=== PATIENT | male | born 1945 | race Hispanic/Latino ===

== ENCOUNTER 2017-12-11 15:27 | Emergency (ER) | payer OTHER, MEDICARE ==
--- OUTSIDE RECORDS SUMMARY | 2017-12-11 15:29 | XMS REPORT | Clinical Summary ---
Author Author [facility] Address Unknown Phone Unavailable Care Team Providers Care Lens Coating Technician Name Role Phone Dada Addison MD PCP Allergies Active Allergy Reactions Severity Noted Date Comments No Known Drug Allergies 03/15/2016 Current Medications Prescription Sig. Disp. Refills Start End Date Status Date fluticasone (FLONASE) 50 1 spray into each nostril 03/10/20 Active mcg/actuation nasal spray daily. 16 gabapentin (NEURONTIN) Take 1 capsule by mouth 3 03/11/20 Active 300 MG capsule (three) times a day. 16 finasteride (PROSCAR) 5 Take 1 tablet by mouth 03/10/20 Active mg tablet nightly. 16 atorvastatin (LIPITOR) 20 Take 1 tablet by mouth 03/10/20 Active MG tablet nightly. 16 carvedilol (COREG) 12.5 Take 1 tablet by mouth 2 03/10/20 Active MG tablet (two) times a day. 16 RAPAFLO 8 mg capsule 03/16/20 Active 16 amlodipine-benazepril Take 1 capsule by mouth Active (LOTREL) 10-40 mg per daily. capsule RIVAROXABAN (XARELTO Take 8 mg by mouth daily. Active ORAL) Active Problems Problem Noted Date Arthritis of right knee 04/20/2016 Right knee pain 03/15/2016 Hypertension 03/15/2016 Encounters Date Type Specialty Care Team Description 05/11/2017 Abstract Orthopedic Surgery Irvin Rowe MD after 12/10/2016 Family History Medical History Relation Name Comments Heart disease Other Kidney disease Other Relation Name Status Comments Other Social History Tobacco Use Types Packs/Day Years Used Date Former Smoker Quit: 1965 Alcohol Use Drinks/Week oz/Week Comments No Sex Assigned at Date Recorded Not on file Last Filed Vital Signs Not on file Plan of Treatment Health Maintenance Due Date Last Done Comments COLONOSCOPY 1996 ZOSTER VACCINE 2006 PNEUMOCOCCAL 2011 POLYSACCHARIDE VACCINE AGE 65 AND OVER PNEUMOCOCCAL-13 2011 INFLUENZA VACCINE 03/22/2018 10/30/2009, 09/17/2008 Implants Implanted Type Area Chisel Worker Device Expiration Model / Identifier Date Serial / Lot Advance Evolution Pin Pack 3 Long & IPM Right: [employer] 01/28/2024 [id number] / 2 Collared Sterile - [id number] IMPLANT Knee ORTHOPEDICS / Implanted: Qty: 1 on 04/20/2016 by [employer] [id number] Irvin Rowe MD Evolutionmp Tibial Keeled Nonpor IPM Right: [employer] 01/28/2024 [id number] / Size 5 Standard Right - [id number] IMPLANT Knee ORTHOPEDICS / Implanted: Qty: 1 on 04/20/2016 by [employer] [id number] Irvin Rowe MD Evolutionmp Femoral Cs/Cr Non-Por IPM Right: [employer] 11/20/2023 [id number] / Size 5 Primary Right - [id number] IMPLANT Knee ORTHOPEDICS / Implanted: Qty: 1 on 04/20/2016 by [employer] [id number] Irvin Rowe MD Evolution Mp Cs Insert Size 5 IPM Right: [employer] 07/22/2018 [id number] / Standard 14mm Right - [id number] IMPLANT Knee ORTHOPEDICS / Implanted: Qty: 1 on 04/20/2016 by [employer] [id number] Irvin Rowe MD Cement Bone R+G 1dose Palacos - Knee Joint Right: [employer] 2018 [id number] Implants Knee / Implanted: Qty: 1 on 04/20/2016 by / Irvin Rowe MD [id number] Cement Bone R+G 1dose Palacos - Knee Joint Right: [employer] 2018 [id number] Implants Knee / Implanted: Qty: 1 on 04/20/2016 by / Irvin Rowe MD [id number] Patella Onlay 3peg 29mm Pe Advance Knee Joint Right: [employer] 2023 [id number] [id number] - [id number] Implants Knee / Implanted: Qty: 1 on 04/20/2016 by / Irvin Rowe MD [id number] Results Not on fileafter 12/10/2016 Insurance Payer Benefit Subscriber ID Type Phone Address Plan / Group MEDICARE MEDICARE xxxxxxxxxx Medicare [place] PART A AND B AETNA AETNA xxxxxxxxxx HMO HMO,POS,EP O, [facility]
[2017-12-11] MEDS ORDERED: HYDROCHLOROTHIA25 MG (17:16)
[2017-12-11] MEDS ORDERED: FINASTERIDE5 MG PO (17:16)
[2017-12-11] MEDS ORDERED: GABAPENTIN100 MG (17:16)
[2017-12-11] MEDS ORDERED: ATORVASTATIN CA10 MG PO (17:16)
[2017-12-11] MEDS ORDERED: CARVEDILOL3.125 MG PO (17:16)
[2017-12-11] MEDS ORDERED: XARELTO10 MG (17:16)
[2017-12-11] MEDS ORDERED: LORATADINE10 MG PO (17:16)
[2017-12-11] MEDS ORDERED: OMEPRAZOLE40 MG (17:16)
[2017-12-11] MEDS ORDERED: AMLODIPINE BESYL5 MG PO (17:16)
== END 2017-12-11 17:10 | disposition home or self-care (01) ==
LOC: FSED 15:27
DX: M25.551 Pain in right hip (principal); I10 Essential (primary) hypertension; I48.91 Unspecified atrial fibrillation; E78.5 Hyperlipidemia, unspecified
CPT/HCPCS: 99283

== ENCOUNTER → 2018-04-25 | Outpatient (CLI) | payer OTHER ==
[~2018-04-25] MED LIST: AMLODIPINE BESYL5 MG PO; ATORVASTATIN CA10 MG PO; CARVEDILOL3.125 MG PO; FINASTERIDE5 MG PO; GABAPENTIN100 MG; HYDROCHLOROTHIA25 MG; LORATADINE10 MG PO; OMEPRAZOLE40 MG; XARELTO10 MG
--- NOTE | 2018-04-25 14:49 | Diagnostic Imaging Report ---
Right Wrist MRI without contrast. History: Navicular fracture. Fall. Decreased range of motion. Comparison: None Technique: Multiplanar multisequence MRI of the wrist without contrast Findings: There is degeneration and fraying of the scapholunate ligament. There is degeneration and fraying of the lunotriquetral ligament. There is degenerative type tearing of the triangular fibrocartilage complex. There is a distal radial ulnar joint effusion and synovitis. There is associated full-thickness articular cartilage loss at the proximal lunate bone with subchondral cystic change. Additionally, there is subchondral cystic change in the distal radius at the distal radial ulnar joint. There is mild underlying bone marrow edema. There are small peripheral marginal osteophytes at the distal ulna. There is neutral ulnar variance. There is a nondisplaced obliquely oriented intra-articular fracture involving the radial styloid with associated bone marrow edema. This is best seen on coronal image 16 through 19. No scaphoid bone fracture is seen. There are scattered degenerative changes about the remaining visualized osseous structures. The extensor tendons are normal. No abnormality of the flexor tendons. Signal intensity within the median nerve is normal. No ganglion cyst. There is normal alignment in the wrist. There is mild dorsal capsular scarring and synovitis. Impression: Nondisplaced obliquely oriented intra-articular fracture involving the radial styloid with bone marrow edema. No scaphoid bone fracture is seen. 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 Signed by: Dr. Nicolas Porter M.D. on 04/25/2018 2:46 PM
== END ==
LOC: MRI 09:49
PROVIDERS: ATTEND Specialist
DX: S62.001A Unspecified fracture of navicular [scaphoid] bone of right wrist, initial encounter for closed fracture (principal)